=== PATIENT | female | born 1960 | race Caucasian/White ===

== ENCOUNTER 2016-09-26 01:04 | Inpatient (IN) | payer OTHER ==
[~2016-09-26] VITALS: Ht 175.3 cm; Wt 102.1 kg
[~2016-09-26 01:04] MED LIST: COUMADIN 7.5 M7.5 MG PO; LISINOPRIL AND1 TA1 PO; NAPROSYN375 MG PO; PAROXETINE HYDR20 MG PO; PERCOCET 325 MG1 TA2 PO; VERAPAMIL HCL240 M2 PO
[2016-09-26] MEDS ORDERED: FERROUS SULFAT325 M3 (11:44)
--- NOTE | 2016-09-26 15:59 | Operative Report ---
Operative/Inv Procedure Report Surgery Date: 09/26/16 Name of Procedure: Left custom total knee arthroplasty Pre-Operative Diagnosis: Left knee osteoarthritis Post-Operative Diagnosis: Same Estimated Blood Loss: less than 50ml Surgeon/Inspector Tool: LUIS AGUILERA,Shane MORALEZ PA Anesthesia: block Implants: Conformis total knee -7b Drains: None Specimens: Femoral, tibial, patellar bone Tourniquet: 63 minutes Complications: None Condition: Stable Operative Indication: Patient is a 56-year-old woman with gradually worsening symptoms consistent with severe osteoarthritis. Her x-rays revealed end-stage degenerative changes with end-stage subluxation. She has severe end-stage degenerative changes of all 3 compartments. She underwent conservative treatment with minimal relief patient underwent a right total knee arthroplasty in the past and wished to proceed with left total knee arthroplasty. Risks, benefits and expectations of surgical procedure were discussed including but not limited to persistent knee pain, need for subsequent surgery, infection, DVT injury to blood vessel or nerve, anesthesia risks. Operative/Procedure Note Note: Patient was brought to the operating room and transferred to the operating table. Once under appropriate anesthesia the left lower extremity was prepped and draped in standard fashion. Preoperative IV antibiotic's were given prophylactically. The leg was elevated exsanguinated tourniquet was inflated. An anterior incision was made over the left knee. Incision was taken down sharply to the underlying retinaculum. A medial retinacular approach was made. There was severe end-stage degenerative changes of all 3 compartments. Soft tissue dissection was was completed remnants of the medial lateral meniscal tissues were excised. Remnants of the ACL was excised. Patient had a fairly global laxity to her left knee and therefore we had to make some adjustments to her instrumentation for the total knee system since it was a custom total knee. The knee was flexed patella was subluxed. Large osteophyte was removed from the superior lateral patella which was visualized preoperatively. This facilitated exposure. I then used the F1 jig from the conformist system and reamed any remaining articular cartilage from the distal femur.. The F2 with the F IIIc component was applied to the distal femur. The distal femoral cutting jig was used to cut my distal femur at an offset. Once this was completed I then placed my chamfer jigs in place and made my chamfer cuts of the distal femur. I was satisfied the completion of the distal femur. I then used the external tibial guide to determine my proximal tibial cut. Again based on patient's global laxity we did a -2 cut for the tibia. While protecting the soft tissues medially, laterally and posteriorly I made my tibial cut. I was satisfied with the tibial cut. Did a trial reduction and I was satisfied with the 7b component after placing the trial femoral bone in place. I then turned my attention to the patella. Patella was measured and the appropriate thickness was removed. I use a size 32. The 3 lug holes were drilled. The lug holes were drilled in the distal femur through the previously placed and removed jigs as well. I tibial rotation was marked. I then removed all trial components and then placed the tibial jig in place and finished preparing the proximal tibia. The tibial punch was completed after the tibia was drilled. All trial component was removed. Copious irrigation of the knee followed. Cement was being mixed on the back table. Once the cement was ready was applied to the dry clean bony surfaces of the tibia. Cement was applied to the dry clean bony surfaces of distal femur. Excess cement was removed with curettes. Cement was applied to the dry clean bony surfaces of the patella after the trial inserts were placed and the knee and the knee was taken full extension. Excess cement was removed with a knife. As the cement was hardening I did a periarticular injection of long acting Marcaine. Once the cement was hardening took the knee through range of motion. I was satisfied with the the inserts. I then removed the trial inserts one at a time and replaced them with the definitive trial inserts. Locking mechanisms were confirmed. Copious irrigation followed. Tourniquet the tourniquet was deflated at 63 minutes. Hemostasis was obtained. No drain was necessary. Was excellent tracking of the patellofemoral joint. No need for lateral release. Every level of closure was followed by copious irrigation. The fascia was closed with interrupted #1 Vicryl suture. Subcutaneous tissues closed in 2 layers with 2-0 Vicryl followed by skin closure with a running 3-0 Vicryl suture with the knee in flexion Discharge Disposition: PACU
--- NOTE | 2016-09-26 16:36 | PN- Orthopedic ---
Subjective Subjective: Postoperative check Patient is seen in PACU. She is wide awake and alert. No complaints at this time. Pain is well-controlled. Spinal anesthesia still having an effect. Tolerating liquids and lites next. No nausea or vomiting. Bonner catheter remains in place. Otherwise denies headache, dizziness, chest pain, shortness of breath. Objective Vital Signs and I&Os Afebrile. Vital signs are stable. Physical Exam: Gen.: Patient is awake and alert. No acute distress. Cardiac: Regular rate and rhythm Pulmonary: Lungs across patient bilaterally. Extremities: There sensation at the proximal thigh, but no sensation from the distal thigh down to the toes as of yet. She is still unable to move her toes to the spinal anesthetic. Feet are warm bilaterally. Alps are in place. Assessment/Plan Assessment/Plan Patient is a 56-year-old female with history of hypertension, migraines, and active smoking who is now postoperative day #0 status post left total knee arthroplasty. She remains stable from a surgical standpoint. Plan: -Okay to advance diet as tolerated. Continue IV fluids until tolerating by mouth. -Keep Bonenr catheter in place overnight for I's and O's. DC Bonner in the morning if urine output is adequate. -Pain control with Percocet or morphine as needed. Patient is awaiting placement of On-Q pain catheter in PACU. -Coumadin for DVT prophylaxis. Titrate dose to keep INR 2-3. -PT consult in the morning for mobilization. Patient may weight-bear as tolerated. -Vancomycin for antibiotic prophylaxis since 24 hours. -Bowel regimen with Colace twice a day and MiraLAX daily. Senna when necessary. -Plan for dressing change on postoperative day #2. -Okay to resume home meds. Core Measures/Miscellaneous Bonner Catheter Date In: 09/26/16 Still Needed? Yes Venous Thromboembolism VTE Risk Factors: Age > 40, Obesity, Smoking, Surgery VTE Contraindications: No Contraindications VTE Prophylaxis Ordered Inpt: Mech & Pharm VTE Diagnosis: No Beta Anshu Is Beta Anshu a Home Med? No Antibiotics Is Patient on Antibiotics? Yes If Yes: prophylaxis
[2016-09-26] MEDS ORDERED: COLACE100 M1 PO (17:12)
[2016-09-26] MEDS ORDERED: COUMADIN5 M2 PO (17:12)
[2016-09-26] MEDS ORDERED: PERCOCET 5-3251 EACH PO (17:12)
--- NOTE | 2016-09-26 17:17 | Patient Discharge Instructions ---
Discharge Instructions General Discharge Information You were seen/treated for: Left knee DJD/osteoarthritis You had these procedures: Left total knee arthroplasty Watch for these problems: Fever to 101, redness, drainage, and ablated bear weight, chest pain, shortness of breath. Call Surgeon to remove: [place] (IF YOU HAVE THEM) Do not soak the wound: Yes No bath, but you may shower: Yes Other wound care: Keep wound clean and dry. You may shower as desired. If you have Steri-Strips, please leave them in place until they fall off on their own. If you have narciso, they must be removed at 2 weeks postop. Dry dressing change once daily. Diet Continue normal diet: Yes Recommended Diet: Heart Healthy Activity Full Activity/No Limits: No Activity Self Limited: Yes Other activity limits: Weight-bear as tolerated with rolling walker. Progress per PT recommendations. No strenuous activity or heavy lifting, pushing, or pulling. No driving while using narcotics. Acute Coronary Syndrome Inclusion Criteria At DC or during hospital stay patient has or had the following: ACS DIAGNOSIS No Discharge Core Measures Meds if any: Prescribed or Continued at Discharge Meds if any: NOT Prescribed or Continued at Discharge Congestive Heart Failure Inclusion Criteria At DC or during hospital stay patient has or had the following: CHF DIAGNOSIS No Discharge Core Measures Meds if any: Prescribed or Continued at Discharge Meds if any: NOT Prescribed or Continued at Discharge Cerebrovascular accident Inclusion Criteria At DC or during hospital stay patient has or had the following: CVA/TIA Diagnosis No Discharge Core Measures Meds if any: Prescribed or Continued at Discharge Meds if any: NOT Prescribed or Continued at Discharge Venous thromboembolism Inclusion Criteria VTE Diagnosis No VTE Type NONE VTE Confirmed by (Test) NONE Discharge Core Measures - Per Current guidelines, there needs to be overlap - treatment for the first 5 days of Warfarin therapy. - If discharged on Warfarin prior to 5 days of - overlap therapy, the patient will need to be - assessed for post discharge needs including - *Post discharge parental anticoagulation - *Warfarin and/or parental anticoagulation education - *Follow up date to check INR post discharge At least 5 days overlap therapy as Inpatient No Meds if any: Prescribed or Continued at Discharge Note: Overlap Therapy is Warfarin and Anticoagulant Meds if any: NOT Prescribed or Continued at Discharge
--- NOTE | 2016-09-26 17:21 | Surgical Discharge Summary ---
Visit Information Visit Dates Admission Date: 09/26/16 Discharge Date: 09/29/16 History of Present Illness Chief Complaint: Left knee pain/DJD/osteoarthritis Medical History Neurological: migraine EENT: NONE Cardiovascular: hypertension Respiratory: NONE Gastrointestinal: NONE Hepatic: NONE Renal: NONE Musculoskeletal: NONE Psychiatric: depression Endocrine: NONE Blood Disorders: NONE Cancer(s): cervical cancer, endometrial cancer CHECK GRADER/Reproductive: NONE History of MRSA: No History of VRE: No Pneumonia Vaccine: 06/04/13 Surgical History Pertinent Surgical History: knee replacement Psychosocial History Who Do You Live With? Daughter What is Your Primary Language? Telugu Tobacco History: Smoker Review of Systems: SEE H&P Hospital Course Course Attending Physician: LUIS AGUILERA,[facility] Primary Care Physician: OSIRIS AGUILERA,[facility] Course: Patient is a 56-year-old female, smoker, with hypertension and migraines who presented to [facility] 09/26/2016 for elective left total knee arthroplasty. She tolerated the procedure well and was transferred to the general medical floor in stable condition. She ambulated with physical therapy, diet was progressed, voided spontaneously, and was cleared for discharge from a surgical standpoint. Allergies: Coded Allergies: NO KNOWN ALLERGIES (09/16/16) Significant Procedures: 09/26/2016 left total knee arthroplasty Disposition Summary Disposition Principal Diagnosis: Left knee DJD/osteoarthritis Additional Diagnosis: None Discharge Disposition: home health services Discharge Instructions General Discharge Information Code Status: Full Code Patient's Diet: Okay to advance to heart healthy as tolerated Patient's Activity: Weight-bear as tolerated with rolling walker. Progress per PT recommendations. No strenuous activity or heavy lifting, pushing, or pulling. No driving while using narcotics. Follow-Up Instructions/Appts: Dry dressing change once daily. You may shower as desired. If you have narciso , patient be removed in 2 weeks. If you have Steri-Strips, we've, placement of a fall off on their own. Follow-up with Deshawn at 2 weeks postop. Patient report any of the following signs and symptoms M.D.: Fever greater than 101, redness, drainage, inability to bear weight, chest pain or shortness of breath. Medications at Discharge Discharge Medications: Continue taking these medications: VERAPAMIL HCL (Verapamil ER) 240 MG TABLET.ER 1 Tablet ORAL DAILY Comments: LAST TAKEN 03/05 AT 10AM LISINOPRIL/HYDROCHLOROTHIAZIDE (Lisinopril-Hctz 20-12.5 MG Tab) 20 MG-12.5 MG TABLET 1 Tablet ORAL TWICE DAILY Comments: LAST TAKEN 03/05 AT 10AM PAROXETINE HCL (Paroxetine Hydrochloride) 20 MG TABLET 1 Tablet ORAL DAILY Comments: LAST TAKEN 03/05 AT 10AM Ferrous Sulfate (Ferrous Sulfate) 325 MG (65 MG IRON) TABLET DAILY @8AM Comments: NOT GIVEN IN HOSPITAL Start taking the following new medications: Warfarin Sodium (Coumadin) 5 MG TABLET 1 Tablet ORAL DAILY Qty = 30 No Refills Comments: Last Taken: 09/28/16 Time: 5:12 PM Oxycodone HCl/Acetaminophen (Percocet 5-325 MG Tablet) 5 MG-325 MG TABLET 1-2 Tablet ORAL EVERY 4 HOURS NEEDED as needed for PAIN Qty = 30 No Refills Comments: Last Taken: 09/28/16 Time: 1100 Docusate Sodium (Colace) 100 MG CAPSULE 1 Capsule ORAL TWICE DAILY Days = 7 No Refills Comments: Last Taken: 09/28/16 Time: 1030 PM
[2016-09-26 18:30] VITALS: BP 120/70
[2016-09-26 21:55] VITALS: BP 120/70
--- NOTE | 2016-09-26 23:40 | NUR ---
PATIENT ARRIVED TO FLOOR AT 1830. FAMILY AT BEDSIDE. PATIENT HAS NOT AMBULATED YET. VSS. PATIENT STATED PAIN WAS 7/10. PAIN MEDICATION GIVEN. PAIN CONTROLLED WELL WITH PERCOCET AND MORPHINE FOR BREAKTHROUGH PAIN. PATIENT ALERT AND ORIENTED. CALL SANTA WITHIN REACH. CELL PHONE AND SHOE PARTS CASER IN THE ROOM WITH PATIENT.
[2016-09-27 00:46] VITALS: BP 124/80
[2016-09-27 04:12] VITALS: BP 110/60
--- NOTE | 2016-09-27 07:18 | PN- Orthopedic ---
See Addendum Subjective Subjective: The patient was seen this morning postoperatively day #1. She reports her pain is under adequate control and has no other complaints at the current time. Objective Vital Signs and I&Os Vital Signs Date Time Temp Pulse Resp B/P Pulse O2 O2 Flow FiO2 Ox Delivery Rate 09/27 0412 98.4 58 20 110/60 92 Room Air 09/27 0046 97.1 62 20 124/80 94 Room Air 09/26 2155 97.4 63 18 120/70 95 Room Air 09/26 2142 63 120/70 09/26 1830 97.8 57 18 120/70 98 Room Air Intake & Output 09/27 0800 09/27 0000 09/26 1600 09/26 0800 09/26 0000 09/25 1600 Intake Total 840 887.5 Output Total 2000 450 Balance -1160 437.5 Intake, IV 600 337.5 Intake, Oral 240 550 Number 0 Bowel Movements Output, Urine 2000 450 Patient 225 lb Weight Physical Exam: Gen.: Alert and in obvious distress Skin: Warm and dry Extremities: Bilateral lower extremities are warm without calf tenderness or significant edema. Gross motor and sensory are intact. Left knee surgical dressing is clean, dry, and intact. There is an On-Q pump in place. Assessment/Plan Assessment/Plan Assessment: 56-year-old female status post left total knee arthroplasty postoperative day #1. The patient is progressing as expected and her pain is under adequate control. Plan: Out of bed with physical therapy patient is weightbearing as tolerated Follow-up morning laboratory studies and dose Coumadin for an INR between 2 and 3 DC Bonner catheter and Hep-Lock IV fluids Continue current pain regiment as well as On-Q pump GI and DVT prophylaxis Core Measures/Miscellaneous Bonner Catheter Date In: 09/26/16 Venous Thromboembolism VTE Risk Factors: Age > 40, Obesity, Smoking, Surgery VTE Contraindications: No Contraindications VTE Prophylaxis Ordered Inpt: Mech & Pharm VTE Diagnosis: No Beta Anshu Is Beta Anshu a Home Med? No Antibiotics Is Patient on Antibiotics? No
[2016-09-27 08:56] VITALS: BP 114/72
[2016-09-27 09:28] LABS: PT 10.8 SEC (9.4-12.5)
[2016-09-27 09:31] LABS: ABSOLUTE BASOPHIL COUNT 0 /CUMM (0.0-0.2); ABSOLUTE EOSINOPHIL COUNT 0 /CUMM (0.0-0.7); ABSOLUTE GRANULOCYTE CT 8.7 /CUMM (1.4-6.5); ABSOLUTE MONOCYTE COUNT 0.4 /CUMM (0.10-0.60); BASOPHIL % 0 % (0.0-2.0); EOSINOPHIL % 0 % (0-5); GRANULOCYTE % 85.9 % (42.2-75.2); HEMATOCRIT 35.8 % (37-47); MEAN CORPUSCULAR HGB 30.6 PG (27.0-31.0); MEAN CORPUSCULAR HGB CONC 33.3 G/DL (33.0-37.0); MEAN CORPUSCULAR VOLUME 92.1 FL (81.0-99.0); MEAN PLATELET VOLUME 7.7 FL (7.4-10.4); PLATELET COUNT 279 /CUMM (130-400); RBC DISTRIBUTION WIDTH 13.6 % (11.5-14.5); RED BLOOD CELL CT 3.89 /CUMM (4.20-5.40); WHITE BLOOD CELL COUNT 10.1 /CUMM (4.8-10.8)
[2016-09-27 12:50] VITALS: BP 116/68
[2016-09-27 15:43] VITALS: BP 130/72
[2016-09-28 00:02] VITALS: BP 120/70
--- NOTE | 2016-09-28 07:07 | PN- Orthopedic ---
See Addendum Subjective Subjective: The patient was seen this morning postoperatively day #2. She reports her pain is under adequate control with current pain regiment and has no other complaints at the current time. Objective Vital Signs and I&Os Vital Signs Date Time Temp Pulse Resp B/P Pulse O2 O2 Flow FiO2 Ox Delivery Rate 09/28 0002 98.5 60 20 120/70 98 Room Air 09/27 2104 118/70 09/27 1543 98.7 73 19 130/72 95 09/27 1250 98.8 64 21 116/68 95 Room Air 09/27 0856 98.0 63 20 114/72 95 09/27 0840 124/70 09/27 0839 124/70 Intake & Output 09/28 0800 09/28 0000 09/27 1600 09/27 0800 09/27 0000 09/26 1600 Intake Total 431 241 5194 840 887.5 Output Total 350 1050 2000 450 Balance -98 -200 1000 -1160 437.5 Intake, IV 12 0 600 337.5 Intake, Oral 526 348 5180 240 550 Number 0 0 0 Bowel Movements Output, Urine 350 1050 2000 450 Patient 225 lb Weight Physical Exam: Gen.: Alert and obvious distress Skin: Warm and dry Extremities: Bilateral lower extremities warm without calf tenderness or significant edema. Gross motor and sensory are intact. Left lower extremity surgical dressing was changed and incision was dry without signs of infection. There was an On-Q pump 1. Assessment/Plan Assessment/Plan assessment: 56-year-old female status post left total knee arthroplasty postoperative day #2. The patient is progressing as expected and her pain is under adequate control. Plan: Continue to work with physical therapy Follow-up morning laboratory studies and dose Coumadin for an INR between 2 and 3 DC On-Q pain pump Continue current pain regiment GI and DVT prophylaxis Daily dry dressing change Core Measures/Miscellaneous Bonner Catheter Date In: 09/26/16 Venous Thromboembolism VTE Risk Factors: Age > 40, Obesity, Smoking, Surgery VTE Contraindications: No Contraindications VTE Prophylaxis Ordered Inpt: Mech & Pharm VTE Diagnosis: No Beta Anshu Is Beta Anshu a Home Med? No Antibiotics Is Patient on Antibiotics? No
[2016-09-28 08:28] LABS: PT 11.7 SEC (9.4-12.5)
[2016-09-28 08:36] VITALS: BP 122/64
[2016-09-28 08:36] LABS: ABSOLUTE BASOPHIL COUNT 0 /CUMM (0.0-0.2); ABSOLUTE EOSINOPHIL COUNT 0 /CUMM (0.0-0.7); ABSOLUTE GRANULOCYTE CT 5.3 /CUMM (1.4-6.5); ABSOLUTE LYMPH COUNT 1.3 /CUMM (1.2-3.4); ABSOLUTE MONOCYTE COUNT 0.6 /CUMM (0.10-0.60); BASOPHIL % 0.3 % (0.0-2.0); EOSINOPHIL % 0.5 % (0-5); GRANULOCYTE % 72.6 % (42.2-75.2); HEMATOCRIT 31.2 % (37-47); MEAN CORPUSCULAR HGB 30.9 PG (27.0-31.0); MEAN CORPUSCULAR HGB CONC 34.1 G/DL (33.0-37.0); MEAN CORPUSCULAR VOLUME 90.5 FL (81.0-99.0); MEAN PLATELET VOLUME 7.6 FL (7.4-10.4); PLATELET COUNT 238 /CUMM (130-400); RBC DISTRIBUTION WIDTH 13.7 % (11.5-14.5); RED BLOOD CELL CT 3.45 /CUMM (4.20-5.40); WHITE BLOOD CELL COUNT 7.3 /CUMM (4.8-10.8)
--- NOTE | 2016-09-28 10:38 | RADIOLOGY REPORT ---
EXAMINATION: XR KNEE, LEFT CLINICAL INFORMATION: Status post left total knee arthroplasty. COMPARISON: Left knee films dated 07/16/2015. TECHNIQUE: 2 views of the left knee. FINDINGS: The patient is status post total left knee arthroplasty with the prosthetic components well seated within the [place] bone. No [place] bone fracture or dislocation is seen. Alignment is anatomic. There is a small suprapatellar knee joint effusion and several locules of air are seen within the joint space and infrapatellar fat pad, consistent with postoperative changes. Prepatellar soft tissue swelling is noted. IMPRESSION: 1. Anatomic alignment status post total left knee arthroplasty. 2. Expected postoperative changes are seen in the soft tissues with air and fluid in the knee joint and soft tissues seen.
[2016-09-28 17:00] VITALS: BP 122/68
[2016-09-29 00:45] VITALS: BP 128/68
[2016-09-29 07:24] VITALS: BP 118/60
--- NOTE | 2016-09-29 07:41 | PN- Orthopedic ---
Subjective Subjective: Patient reporting no acute overnight events. Pain was well controlled with po pain medications. She denies chest pain, shortness of breath and difficulty breathing. She denies nausea and vomitting. She has yet to move her bowels but feels the urge this am. She anticipates discharge to home later today. Objective Vital Signs and I&Os Vital Signs Date Time Temp Pulse Resp B/P Pulse O2 O2 Flow FiO2 Ox Delivery Rate 09/29 0724 98.2 68 20 118/60 97 09/29 0045 97.9 67 20 128/68 95 Room Air 09/28 2230 68 120/70 09/28 1700 98.4 74 20 122/68 98 09/28 0910 73 122/64 09/28 0910 73 122/64 09/28 0836 97.7 73 20 122/64 97 Room Air Intake & Output 09/29 0800 09/29 0000 09/28 1600 09/28 0800 09/28 0000 09/27 1600 Intake Total 800 850 800 157 543 1831 Output Total 800 600 429 792 6508 Balance 0 250 500 -98 -200 1000 Intake, IV 0 0 12 0 Intake, Oral 800 850 800 841 334 2111 Number 0 0 0 0 Bowel Movements Output, Urine 800 600 393 469 6041 Physical Exam: General: Alert and oriented x3, no acute distress Cardiac: RRR, s1s2 Pulmonary: Bilateral lung sounds clear to auscultation Abdomen: Non-tender, non-distended, +bs Extremiteis: Moves all extremities, distal sensations intact. Skin warm and well perufsed. DP pulses palpable. Bilateral calves soft and non-tender Surgical site: Left knee. No drainage. Skin edges well approximated. Assessment/Plan Assessment/Plan This is a 56 year old female, POD 3, s/p left TKR -Continue current pain regimen -OOB with pt, must clear stairs prior to discharge -F/U Labs -Dose coumadin for INR 2-3 for dvt ppx -Bowel regimen, will add dulcolax if needed for bm -Continue diet as tolerated -Will d/w Dr. Benedict Core Measures/Miscellaneous Bonner Catheter Date In: 09/26/16 Venous Thromboembolism VTE Risk Factors: Age > 40, Obesity, Smoking, Surgery VTE Contraindications: No Contraindications VTE Prophylaxis Ordered Inpt: Mech & Pharm VTE Diagnosis: No Beta Anshu Is Beta Anshu a Home Med? No Antibiotics Is Patient on Antibiotics? No
[2016-09-29 09:03] LABS: ABSOLUTE BASOPHIL COUNT 0 /CUMM (0.0-0.2); ABSOLUTE EOSINOPHIL COUNT 0.1 /CUMM (0.0-0.7); ABSOLUTE GRANULOCYTE CT 5.2 /CUMM (1.4-6.5); ABSOLUTE LYMPH COUNT 1.1 /CUMM (1.2-3.4); ABSOLUTE MONOCYTE COUNT 0.5 /CUMM (0.10-0.60); BASOPHIL % 0.5 % (0.0-2.0); EOSINOPHIL % 1.1 % (0-5); GRANULOCYTE % 75.1 % (42.2-75.2); HEMATOCRIT 32.8 % (37-47); MEAN CORPUSCULAR HGB CONC 33.8 G/DL (33.0-37.0); MEAN PLATELET VOLUME 7.7 FL (7.4-10.4); PLATELET COUNT 260 /CUMM (130-400); RBC DISTRIBUTION WIDTH 13.5 % (11.5-14.5); RED BLOOD CELL CT 3.57 /CUMM (4.20-5.40); WHITE BLOOD CELL COUNT 6.9 /CUMM (4.8-10.8)
[2016-09-29 09:07] VITALS: BP 126/82
[2016-09-29 09:07] LABS: PT 13.2 SEC (9.4-12.5)
== END 2016-09-29 13:20 | disposition home health service (06) | DRG 470 ==
LOC: ENRESERVTM → ENRESERVDT → SDA 01:04 → ENPENDDIS 01:04 → SDA 07:00 → 2NB 18:15
PROVIDERS: Nurse Practitioner; Physician Assistant; Physician Assistant Surgical; ADMIT Orthopaedic Surgery
PROC: 0SRD0J9 Replacement of Left Knee Joint with Synthetic Substitute, Cemented, Open Approach (ICD-10-PCS; principal; 2016-09-26)
DX: M17.12 Unilateral primary osteoarthritis, left knee (principal); I10 Essential (primary) hypertension; F32.9 Major depressive disorder, single episode, unspecified; F17.210 Nicotine dependence, cigarettes, uncomplicated; G43.909 Migraine, unspecified, not intractable, without status migrainosus; E66.9 Obesity, unspecified; Z85.41 Personal history of malignant neoplasm of cervix uteri; Z68.33 Body mass index [BMI] 33.0-33.9, adult
CPT/HCPCS: 2NBSP; 36415; 73560-LT; 82436; 87086; 88305; 97110-GO; 97112-GO; 97116-GO; 97161-GP; 97530-GO; C1713; C9290; J0131; J0690; J1885; J2405; J2795; J3370; J7060